=== PATIENT | female | born 1970 ===

== ENCOUNTER 2025-02-27 05:27 | Day surgery (SDC) | payer OTHER ==
[2025-02-22 12:30] VITALS: BP 141/71
[~2025-02-27] VITALS: Ht 157.5 cm; Wt 58.1 kg
[~2025-02-27 05:27] MED LIST: ENDOMETRIN100 MG; MENEST0.3 MG
[2025-02-27] MEDS ORDERED: IBU600 MG PO (08:48)
[2025-02-27] MEDS ORDERED: ONDANSETRON HCL 2 MG/ML VIAL IV ONE (10:10)
[2025-02-27] MEDS ORDERED: MORPHINE SULFATE 4 MG/ML VIAL IV ONE (10:15)
== END 2025-02-27 14:15 | disposition home or self-care (01) ==
LOC: CIR.AMB 05:27
PROVIDERS: ATTEND Obstetrics & Gynecology Gynecology
DX: N84.0 Polyp of corpus uteri (principal); N84.1 Polyp of cervix uteri